=== PATIENT | female | born 1960 | race Caucasian/White ===

== ENCOUNTER 2018-10-21 01:31 | Inpatient (IN) | payer MEDICAID ==
[~2018-10-21] VITALS: Ht 152.4 cm; Wt 80.0 kg
[2018-10-21] MEDS ORDERED: ONDANSETRON HCL 4MG/2ML INJ IV STA (03:31)
[2018-10-21] MEDS ORDERED: SODIUM CHLORIDE 0.9% 1,000 ML IV ONE (03:31)
[2018-10-21] MEDS ORDERED: MORPHINE SULFATE 4 MG/ML CPJ (NOT FOR IM USE) IV STA (03:31)
[2018-10-21] MEDS ORDERED: FAMOTIDINE 20MG/2ML VIAL IV STA (03:31)
[2018-10-21 03:53] LABS: BASOPHILS % 0.5 % (0.0-2.0); EOSINOPHILS % 1.3 % (0.0-5.0); HEMATOCRIT. 27.2 % (36.0-48.0); HEMOGLOBIN. 9.5 g/dL (12.0-16.0); LYMPHOCYTES % 13.5 % (20.0-50.0); MEAN CORPUSCULAR HEMOGLOBIN 29.8 pg (28.0-32.0); MEAN PLATELET VOLUME 8.8 fl (7.4-10.4); MONOCYTES % 5.7 % (2.0-8.0); RED BLOOD CELL COUNT 3.17 mill/uL (4.2-5.4); RED CELL DISTRIBUTION WIDTH 16.3 % (11.6-14.6)
[2018-10-21 03:58] LABS: CHLORIDE 102 mEq/L (98-107)
[2018-10-21] MEDS ORDERED: MORPHINE SULFATE 4 MG/ML CPJ (NOT FOR IM USE) IV ONE (05:45)
[2018-10-21] MEDS ORDERED: CEFTRIAXONE 1 G PREMIX 50 ML IV ONE (05:45)
[2018-10-21] MEDS ORDERED: ONDANSETRON HCL 4MG/2ML INJ IV ONE (05:45)
[2018-10-21] MEDS ORDERED: IOHEXOL-300 100 ML BOTTLE ONE (06:19)
[2018-10-21] MEDS ORDERED: PIPERACILLIN/TAZOBACTAM 3.375GM/50ML PREMIX IV ONE (09:00)
[2018-10-21] MEDS ORDERED: METOCLOPRAMIDE HCL 10MG/2ML VIAL IV ONE (09:00)
[2018-10-21 12:00] VITALS: BP 152/46
[2018-10-21 12:25] VITALS: BP 152/46
[2018-10-21] MEDS: ONDANSETRON HCL 4MG/2ML INJ IV PRN ×2 (13:26→20:39)
[2018-10-21] MEDS: MORPHINE SULFATE 2 MG/ML CPJ (NOT FOR IM USE) IV PRN (13:27)
[2018-10-21 16:00] VITALS: BP 185/75
[2018-10-21 20:00] VITALS: BP 159/73
[2018-10-21] MEDS ORDERED: DEXTROSE 50% WATER 50ML SYRINGE IV PRN (23:15)
[2018-10-22] VITALS: BP 178/75
[2018-10-22] MEDS: LOSARTAN POTASSIUM 25 MG TABLET PO SCH ×2 (01:30→08:21)
[2018-10-22] MEDS: ONDANSETRON HCL 4MG/2ML INJ IV PRN ×3 (03:24→20:14)
[2018-10-22] MEDS: MORPHINE SULFATE 2 MG/ML CPJ (NOT FOR IM USE) IV PRN ×4 (03:27→23:31)
[2018-10-22 04:00] VITALS: BP 159/75
[2018-10-22] MEDS: BLOOD SUGAR DIAGNOSTIC STRIP TEST SCH ×4 (06:23→21:00)
[2018-10-22 07:49] LABS: HEMATOCRIT. 28.1 % (36.0-48.0); HEMOGLOBIN. 9.4 g/dL (12.0-16.0); MEAN CORPUSCULAR HEMOGLOBIN 29.5 pg (28.0-32.0); MEAN CORPUSCULAR VOLUME 87.9 fL (81.0-99.0); PLATELET 63 x1000/uL (130-400)
[2018-10-22] MEDS: INSULIN LISPRO 100 UNITS/ML SUBCUT SCH ×4 (07:50→20:26)
[2018-10-22 08:00] VITALS: BP 165/60
[2018-10-22 08:20] LABS: CHLORIDE 106 mEq/L (98-107)
[2018-10-22 08:25] LABS: HEPATITIS B SURFACE ANTIGEN NEGATIVE
[2018-10-22 08:55] LABS: HEPATITIS A AB IGM NEGATIVE (NEGATIVE)
[2018-10-22 12:00] VITALS: BP 120/45
[2018-10-22 13:05] LABS: PLATELET ESTIMATE DECREASED
[2018-10-22 14:03] LABS: PLATELET 41 x1000/uL (130-400)
[2018-10-22] MEDS: FAMOTIDINE 20MG/2ML VIAL IV SCH (15:31)
[2018-10-22] MEDS ORDERED: LEVO125T8 MT (15:48)
[2018-10-22] MEDS ORDERED: SITA25TA3 MT (15:48)
[2018-10-22] MEDS ORDERED: GLIP5TAB12 MT (15:48)
[2018-10-22 16:00] VITALS: BP 169/70
[2018-10-22 20:00] VITALS: BP 150/70
[2018-10-22 20:50] LABS: BASOPHILS % 0.3 % (0.0-2.0); EOSINOPHILS % 0.1 % (0.0-5.0); HEMATOCRIT. 26.7 % (36.0-48.0); HEMOGLOBIN. 9.2 g/dL (12.0-16.0); LYMPHOCYTES % 7.7 % (20.0-50.0); MEAN CORPUSCULAR HEMOGLOBIN 30.4 pg (28.0-32.0); MEAN CORPUSCULAR VOLUME 88.4 fL (81.0-99.0); MEAN PLATELET VOLUME 9.2 fl (7.4-10.4); MONOCYTES % 5.3 % (2.0-8.0); NEUTROPHILS % 86.6 % (40.0-76.0); PLATELET 71 x1000/uL (130-400); RED BLOOD CELL COUNT 3.02 mill/uL (4.2-5.4); RED CELL DISTRIBUTION WIDTH 17.3 % (11.6-14.6)
[2018-10-22] MEDS ORDERED: CALCIUM GLUCONATE 1,000 MG in DEXT 5% WATER 90 ML IV SCH (22:00)
[2018-10-22] MEDS: LEVOTHYROXINE SODIUM 75MCG TABLET PO SCH (22:11)
[2018-10-22 22:36] LABS: CLARITY URINE CLOUDY (CLEAR); COLOR URINE YELLOW (YELLOW); KETONES URINE NEGATIVE (NEGATIVE); LEUKOCYTE ESTERASE URINE TRACE (NEGATIVE); NITRITE URINE NEGATIVE (NEGATIVE); OCCULT BLOOD URINE 2+ (NEGATIVE); PROTEIN URINE 4+ (NEGATIVE); SPECIFIC GRAVITY URINE 1.025 (1.005-1.030)
[2018-10-23] VITALS (10 sets, daily range): BP systolic 133–166; BP diastolic 54–85
[2018-10-23] MEDS: ONDANSETRON HCL 4MG/2ML INJ IV PRN ×3 (03:04→17:43)
[2018-10-23] MEDS: SODIUM CHLORIDE 0.9% 1,000 ML IV SCH ×3 (05:03→22:25)
[2018-10-23] MEDS: LEVOTHYROXINE SODIUM 75MCG TABLET PO SCH (06:23)
[2018-10-23] MEDS: BLOOD SUGAR DIAGNOSTIC STRIP TEST SCH ×4 (06:39→21:12)
[2018-10-23 06:58] LABS: HEMATOCRIT. 24.3 % (36.0-48.0); HEMOGLOBIN. 8.2 g/dL (12.0-16.0); MEAN CORPUSCULAR HEMOGLOBIN 29.8 pg (28.0-32.0); MEAN CORPUSCULAR VOLUME 88.6 fL (81.0-99.0); MEAN PLATELET VOLUME 9.3 fl (7.4-10.4); PLATELET 69 x1000/uL (130-400); RED BLOOD CELL COUNT 2.75 mill/uL (4.2-5.4); RED CELL DISTRIBUTION WIDTH 17.1 % (11.6-14.6)
[2018-10-23 07:35] LABS: PHOSPHORUS 4.9 mg/dL (2.5-4.9)
[2018-10-23] MEDS: INSULIN LISPRO 100 UNITS/ML SUBCUT SCH ×4 (07:36→21:00)
[2018-10-23 07:38] LABS: T4 FREE 1.04 ng/dL (0.76-1.46)
[2018-10-23] MEDS: FAMOTIDINE 20MG/2ML VIAL IV SCH (08:48)
[2018-10-23] MEDS: HYDROMORPHONE HCL/PF 2MG/ML CPJ IV PRN (08:49)
[2018-10-23] MEDS: CLONIDINE 0.1MG TABLET PO PRN (08:51)
[2018-10-23 09:07] LABS: CREATINE KINASE 983 IU/L (26-192)
[2018-10-23 11:25] LABS: PLATELET ESTIMATE DECREASED
[2018-10-23] MEDS: ACETAMINOPHEN 325MG TABLET PO PRN (17:43)
[2018-10-24] VITALS (12 sets, daily range): BP systolic 124–160; BP diastolic 43–80
[2018-10-24] MEDS: ONDANSETRON HCL 4MG/2ML INJ IV PRN ×3 (01:33→21:55)
[2018-10-24] MEDS: HYDROMORPHONE HCL/PF 2MG/ML CPJ IV PRN (02:41)
[2018-10-24] MEDS: LEVOTHYROXINE SODIUM 75MCG TABLET PO SCH (07:22)
[2018-10-24] MEDS: BLOOD SUGAR DIAGNOSTIC STRIP TEST SCH ×4 (07:22→21:00)
[2018-10-24 07:28] LABS: HEMATOCRIT. 23.1 % (36.0-48.0); HEMOGLOBIN. 7.6 g/dL (12.0-16.0); MEAN CORPUSCULAR HEMOGLOBIN 29.4 pg (28.0-32.0); MEAN CORPUSCULAR VOLUME 89.5 fL (81.0-99.0); MEAN PLATELET VOLUME 9.2 fl (7.4-10.4); PLATELET 98 x1000/uL (130-400); RED BLOOD CELL COUNT 2.58 mill/uL (4.2-5.4); RED CELL DISTRIBUTION WIDTH 18.3 % (11.6-14.6)
[2018-10-24] MEDS: INSULIN LISPRO 100 UNITS/ML SUBCUT SCH ×4 (07:41→21:00)
[2018-10-24] MEDS: SODIUM CHLORIDE 0.9% 1,000 ML IV SCH ×2 (08:19→17:24)
[2018-10-24] MEDS: FAMOTIDINE 20MG/2ML VIAL IV SCH (08:19)
[2018-10-24 08:40] LABS: PHOSPHORUS 4.2 mg/dL (2.5-4.9)
[2018-10-24 10:02] LABS: PLATELET ESTIMATE DECREASED
[2018-10-24] MEDS: ACETAMINOPHEN 325MG TABLET PO PRN ×2 (11:21→17:30)
[2018-10-24] MEDS: CLONIDINE 0.1MG TABLET PO PRN (11:21)
[2018-10-24] MEDS ORDERED: CALCIUM GLUCONATE 1,000 MG in DEXT 5% WATER 90 ML IV NR (12:00)
[2018-10-24] MEDS: PIPERACILLIN/TAZ 3.375G PREMIX 50 ML IV SCH ×2 (13:51→21:33)
[2018-10-24] MEDS: LACTULOSE 20G/30ML UDC PO SCH (17:24)
[2018-10-25] VITALS (13 sets, daily range): BP systolic 73–186; BP diastolic 36–103
[2018-10-25] MEDS: ACETAMINOPHEN 325MG TABLET PO PRN ×2 (00:45→14:52)
[2018-10-25] MEDS: CLONIDINE 0.1MG TABLET PO PRN ×2 (02:29→13:39)
[2018-10-25] MEDS: PIPERACILLIN/TAZ 3.375G PREMIX 50 ML IV SCH ×3 (04:32→21:33)
[2018-10-25] MEDS: SODIUM CHLORIDE 0.9% 1,000 ML IV SCH ×2 (04:32→12:44)
[2018-10-25 06:38] LABS: BASOPHILS % 0.6 % (0.0-2.0); EOSINOPHILS % 2.1 % (0.0-5.0); HEMATOCRIT. 23.7 % (36.0-48.0); LYMPHOCYTES % 13.1 % (20.0-50.0); MEAN CORPUSCULAR HEMOGLOBIN 30.1 pg (28.0-32.0); MEAN PLATELET VOLUME 8.5 fl (7.4-10.4); NEUTROPHILS % 73.2 % (40.0-76.0); PLATELET 121 x1000/uL (130-400); RED BLOOD CELL COUNT 2.66 mill/uL (4.2-5.4); RED CELL DISTRIBUTION WIDTH 18.2 % (11.6-14.6)
[2018-10-25] MEDS: LEVOTHYROXINE SODIUM 150MCG TABLET PO SCH (06:39)
[2018-10-25] MEDS: BLOOD SUGAR DIAGNOSTIC STRIP TEST SCH ×4 (06:39→21:34)
[2018-10-25] MEDS: INSULIN LISPRO 100 UNITS/ML SUBCUT SCH ×4 (06:39→21:00)
[2018-10-25] MEDS: LACTULOSE 20G/30ML UDC PO SCH ×2 (08:51→17:39)
[2018-10-25] MEDS: FAMOTIDINE 20MG/2ML VIAL IV SCH (08:51)
[2018-10-25] MEDS ORDERED: CALCIUM CHLORIDE 1,000 MG in DEXT 5% WATER 90 ML IV SCH (11:00)
[2018-10-25] MEDS ORDERED: HYDROCODONE/ACETAMINOPHEN 5/325MG TABLET PO PRN (17:00)
[2018-10-26] VITALS (18 sets, daily range): BP systolic 101–193; BP diastolic 58–101
[2018-10-26] MEDS: SODIUM CHLORIDE 0.9% 1,000 ML IV SCH ×3 (04:25→21:35)
[2018-10-26] MEDS: PIPERACILLIN/TAZ 3.375G PREMIX 50 ML IV SCH ×3 (04:25→21:35)
[2018-10-26] MEDS: CLONIDINE 0.2MG TABLET PO PRN ×3 (04:26→21:49)
[2018-10-26] MEDS: HYDROMORPHONE HCL/PF 2MG/ML CPJ IV PRN ×2 (04:35→10:50)
[2018-10-26] MEDS: LEVOTHYROXINE SODIUM 150MCG TABLET PO SCH (06:15)
[2018-10-26] MEDS: BLOOD SUGAR DIAGNOSTIC STRIP TEST SCH ×4 (06:16→21:45)
[2018-10-26 06:22] LABS: BASOPHILS % 0.4 % (0.0-2.0); EOSINOPHILS % 2.8 % (0.0-5.0); HEMATOCRIT. 24.8 % (36.0-48.0); HEMOGLOBIN. 8.4 g/dL (12.0-16.0); LYMPHOCYTES % 13.4 % (20.0-50.0); MEAN CORPUSCULAR HEMOGLOBIN 30.2 pg (28.0-32.0); MEAN CORPUSCULAR VOLUME 88.6 fL (81.0-99.0); MEAN PLATELET VOLUME 7.9 fl (7.4-10.4); MONOCYTES % 11.8 % (2.0-8.0); NEUTROPHILS % 71.6 % (40.0-76.0); PLATELET 171 x1000/uL (130-400); RED BLOOD CELL COUNT 2.79 mill/uL (4.2-5.4); RED CELL DISTRIBUTION WIDTH 18.8 % (11.6-14.6)
[2018-10-26] MEDS: INSULIN LISPRO 100 UNITS/ML SUBCUT SCH ×4 (08:00→21:00)
[2018-10-26] MEDS: LACTULOSE 20G/30ML UDC PO SCH ×2 (08:45→18:43)
[2018-10-26] MEDS: FAMOTIDINE 20MG/2ML VIAL IV SCH (08:46)
[2018-10-26] MEDS: CALCIUM CARBONATE 1250MG TABLET (500MG ELEMENTAL CALCIUM) PO SCH (08:46)
[2018-10-26] MEDS ORDERED: POTASSIUM CHLORIDE 20MEQ TABLET SR PO SCH (09:00)
[2018-10-26] MEDS: ONDANSETRON HCL 4MG/2ML INJ IV PRN (09:04)
[2018-10-26 13:10] LABS: ANTI-NUCLEAR ANTIBODIES DIRECT Negative (Negative)
[2018-10-26] MEDS: CLONIDINE 0.1MG TABLET PO PRN (15:39)
[2018-10-27] VITALS (12 sets, daily range): BP systolic 128–195; BP diastolic 24–89
[2018-10-27] MEDS: ACETAMINOPHEN 325MG TABLET PO PRN ×3 (00:26→21:30)
[2018-10-27 05:19] LABS: HIV SCREEN 4G Non Reactive (Non Reactive)
[2018-10-27] MEDS: SODIUM CHLORIDE 0.9% 1,000 ML IV SCH ×3 (05:35→23:56)
[2018-10-27] MEDS: PIPERACILLIN/TAZ 3.375G PREMIX 50 ML IV SCH ×3 (05:35→21:29)
[2018-10-27] MEDS: CLONIDINE 0.2MG TABLET PO PRN ×2 (05:36→21:30)
[2018-10-27 06:36] LABS: BASOPHILS % 0.7 % (0.0-2.0); EOSINOPHILS % 3.5 % (0.0-5.0); HEMATOCRIT. 24.8 % (36.0-48.0); HEMOGLOBIN. 8.3 g/dL (12.0-16.0); LYMPHOCYTES % 16.8 % (20.0-50.0); MEAN CORPUSCULAR HEMOGLOBIN 29.6 pg (28.0-32.0); MEAN PLATELET VOLUME 7.7 fl (7.4-10.4); MONOCYTES % 11.3 % (2.0-8.0); NEUTROPHILS % 67.7 % (40.0-76.0); PLATELET 161 x1000/uL (130-400); RED BLOOD CELL COUNT 2.79 mill/uL (4.2-5.4); RED CELL DISTRIBUTION WIDTH 20.1 % (11.6-14.6)
[2018-10-27 06:50] LABS: PHOSPHORUS 3.2 mg/dL (2.5-4.9)
[2018-10-27] MEDS ORDERED: POTASSIUM CHLORIDE 20MEQ/PACKET PO SCH (07:00)
[2018-10-27] MEDS: BLOOD SUGAR DIAGNOSTIC STRIP TEST SCH ×4 (07:30→21:31)
[2018-10-27] MEDS: INSULIN LISPRO 100 UNITS/ML SUBCUT SCH ×4 (08:00→21:00)
[2018-10-27 08:19] LABS: COMPLEMENT C3 123 mg/dL (82-167)
[2018-10-27] MEDS ORDERED: MAGNESIUM 2 G PREMIX 50 ML IV SCH (10:00)
[2018-10-27] MEDS: LEVOTHYROXINE SODIUM 150MCG TABLET PO SCH (10:25)
[2018-10-27] MEDS: LACTULOSE 20G/30ML UDC PO SCH ×2 (10:25→16:59)
[2018-10-27] MEDS: CALCIUM CARBONATE 1250MG TABLET (500MG ELEMENTAL CALCIUM) PO SCH (10:25)
[2018-10-27] MEDS: FAMOTIDINE 20MG/2ML VIAL IV SCH (10:26)
[2018-10-27] MEDS: NEBIVOLOL HCL 5 MG TABLET PO SCH (14:29)
[2018-10-27] MEDS: LOSARTAN POTASSIUM 50 MG TABLET PO SCH (14:29)
[2018-10-28] VITALS (17 sets, daily range): BP systolic 144–204; BP diastolic 58–95
[2018-10-28] MEDS: ACETAMINOPHEN 325MG TABLET PO PRN (03:51)
[2018-10-28] MEDS: CLONIDINE 0.2MG TABLET PO PRN ×2 (03:52→17:08)
[2018-10-28] MEDS: PIPERACILLIN/TAZ 3.375G PREMIX 50 ML IV SCH ×2 (05:22→13:03)
[2018-10-28 06:56] LABS: BASOPHILS % 0.6 % (0.0-2.0); EOSINOPHILS % 2.9 % (0.0-5.0); HEMATOCRIT. 25.1 % (36.0-48.0); HEMOGLOBIN. 8.5 g/dL (12.0-16.0); LYMPHOCYTES % 14.4 % (20.0-50.0); MEAN CORPUSCULAR HEMOGLOBIN 29.8 pg (28.0-32.0); MEAN CORPUSCULAR VOLUME 88.4 fL (81.0-99.0); MONOCYTES % 10.4 % (2.0-8.0); NEUTROPHILS % 71.7 % (40.0-76.0); PLATELET 162 x1000/uL (130-400); RED BLOOD CELL COUNT 2.84 mill/uL (4.2-5.4)
[2018-10-28 06:59] LABS: CHLORIDE 107 mEq/L (98-107)
[2018-10-28 07:07] LABS: PHOSPHORUS 3.9 mg/dL (2.5-4.9)
[2018-10-28] MEDS: BLOOD SUGAR DIAGNOSTIC STRIP TEST SCH ×2 (07:30→12:59)
[2018-10-28] MEDS: INSULIN LISPRO 100 UNITS/ML SUBCUT SCH ×2 (08:00→12:59)
[2018-10-28] MEDS ORDERED: POTASSIUM CHLORIDE 20MEQ/PACKET PO NR (08:00)
[2018-10-28] MEDS: NEBIVOLOL HCL 5 MG TABLET PO SCH (09:14)
[2018-10-28] MEDS: LEVOTHYROXINE SODIUM 150MCG TABLET PO SCH (09:14)
[2018-10-28] MEDS: LOSARTAN POTASSIUM 50 MG TABLET PO SCH (09:14)
[2018-10-28] MEDS: CALCIUM CARBONATE 1250MG TABLET (500MG ELEMENTAL CALCIUM) PO SCH (09:14)
[2018-10-28] MEDS: LACTULOSE 20G/30ML UDC PO SCH (09:15)
[2018-10-28] MEDS: FAMOTIDINE 20MG/2ML VIAL IV SCH (09:15)
[2018-10-28] MEDS ORDERED: POTASSIUM CHLORIDE 20MEQ TABLET SR PO SCH (12:00)
[2018-10-28] MEDS ORDERED: AMLODIPINE 10MG TABLET PO SCH (12:30)
[2018-10-28] MEDS ORDERED: NEBIVOLOL HCL 5 MG TABLET PO SCH (12:30)
[2018-10-28] MEDS: SODIUM CHLORIDE 0.9% 1,000 ML IV SCH (13:30)
[2018-10-28] MEDS ORDERED: LOSARTAN POTASSIUM 50 MG TABLET PO SCH (21:00)
[2018-10-29] MEDS ORDERED: NEBIVOLOL HCL 5 MG TABLET PO SCH (09:00)
[2018-11-05] MEDS ORDERED: CALC0.253 PO (11:46)
[2018-11-05] MEDS ORDERED: CALC-25 PO (11:46)
== END 2018-10-28 18:30 | disposition home or self-care (01) | DRG 48 ==
LOC: ER 01:31 → 6EST 08:49 → EDBEDREQTM 08:52 → EDBEDREQ 08:52 → EDBEDREQSVC 08:52 → ENRESERV 11:44 → 6EST 12:46 → 5EST 10-23 10:52
PROVIDERS: ADMIT Internal Medicine; ATTEND Internal Medicine
DX: E11.43 Type 2 diabetes mellitus with diabetic autonomic (poly)neuropathy (principal); N17.9 Acute kidney failure, unspecified; D69.6 Thrombocytopenia, unspecified; E44.1 Mild protein-calorie malnutrition; E66.01 Morbid (severe) obesity due to excess calories; E83.51 Hypocalcemia; K31.84 Gastroparesis; I11.9 Hypertensive heart disease without heart failure; E87.1 Hypo-osmolality and hyponatremia; K52.9 Noninfective gastroenteritis and colitis, unspecified; E86.0 Dehydration; D64.9 Anemia, unspecified; E03.9 Hypothyroidism, unspecified; N39.0 Urinary tract infection, site not specified; R80.9 Proteinuria, unspecified; K76.0 Fatty (change of) liver, not elsewhere classified; K82.8 Other specified diseases of gallbladder; K81.9 Cholecystitis, unspecified; Z79.899 Other long term (current) drug therapy; Z68.34 Body mass index [BMI] 34.0-34.9, adult
CPT/HCPCS: 36415; 71045; 74018; 74177; 74181; 76705; 80048; 80076; 82330; 82550; 82652; 82962; 83605; 83735; 83970; 84100; 84439; 84443; 84480; 86038; 86160; 86705; 86709; 86803; 87340; 87389; 93005; 96365; 96375; 99285; C1893; J0610; J0696; J1170; J1815; J2270; J2405; J2543; J2765; J3475; J3490; J7030; J7060; Q9967

== ENCOUNTER 2018-10-30 04:12 | Emergency (ER) | payer MEDICAID ==
[~2018-10-30] VITALS: Ht 137.2 cm; Wt 70.0 kg
[~2018-10-30 04:12] MED LIST: GLIP5TAB12 MT; LEVO125T8 MT; SITA25TA3 MT
[2018-10-30] MEDS ORDERED: FAMOTIDINE 20MG/2ML VIAL IV STA (06:50)
[2018-10-30] MEDS ORDERED: SODIUM CHLORIDE 0.9% 1,000 ML IV ONE (06:50)
[2018-10-30] MEDS ORDERED: ONDANSETRON HCL 4MG/2ML INJ IV STA (06:50)
[2018-10-30] MEDS ORDERED: KETOROLAC 30MG/ML VIAL IV STA (06:50)
[2018-10-30 08:06] LABS: BASOPHILS % 0.8 % (0.0-2.0); EOSINOPHILS % 1.7 % (0.0-5.0); HEMATOCRIT. 30.6 % (36.0-48.0); HEMOGLOBIN. 10.1 g/dL (12.0-16.0); LYMPHOCYTES % 17.8 % (20.0-50.0); MEAN CORPUSCULAR HEMOGLOBIN 29.3 pg (28.0-32.0); MEAN CORPUSCULAR VOLUME 89.1 fL (81.0-99.0); MEAN PLATELET VOLUME 7.5 fl (7.4-10.4); MONOCYTES % 7.4 % (2.0-8.0); NEUTROPHILS % 72.3 % (40.0-76.0); PLATELET 210 x1000/uL (130-400); RED BLOOD CELL COUNT 3.44 mill/uL (4.2-5.4)
[2018-10-30 08:13] LABS: CHLORIDE 101 mEq/L (98-107)
[2018-10-30 08:28] LABS: CLARITY URINE CLEAR (CLEAR); COLOR URINE YELLOW (YELLOW); KETONES URINE NEGATIVE (NEGATIVE); LEUKOCYTE ESTERASE URINE TRACE (NEGATIVE); NITRITE URINE NEGATIVE (NEGATIVE); OCCULT BLOOD URINE TRACE (NEGATIVE); PH URINE 6.5 (4.5-8.0); PROTEIN URINE 4+ (NEGATIVE); SPECIFIC GRAVITY URINE 1.011 (1.005-1.030)
[2018-10-30 09:08] LABS: PLATELET ESTIMATE NORMAL
[2018-10-30 14:50] VITALS: BP 141/75
== END 2018-10-30 15:45 | disposition home or self-care (01) ==
LOC: ER 04:12
DX: K81.9 Cholecystitis, unspecified (principal); R11.2 Nausea with vomiting, unspecified; E11.9 Type 2 diabetes mellitus without complications; E07.9 Disorder of thyroid, unspecified; Z98.890 Other specified postprocedural states; Z79.899 Other long term (current) drug therapy
CPT/HCPCS: 36415; 76705; 80053; 81003; 83690; 85025; 96361; 96374; 96375; 99284; J1885; J2405; J3490; Z7610

== ENCOUNTER 2025-04-06 15:04 | Emergency (ER) | payer MEDICARE, MEDICAID ==
[~2025-04-06] VITALS: Ht 160 cm; Wt 73.0 kg
[~2025-04-06 15:04] MED LIST changes: +CALC-26 PO; +CALC0.253 PO; -GLIP5TAB12 MT; +GLIP5TAB22 MT
[2025-04-06 15:08] VITALS: O2SAT 100
[2025-04-06 15:11] VITALS: BP 152/62; PULSE 81; RESP 18; TEMP 36.8; O2SAT 100
[2025-04-06 21:22] LABS: BASOPHILS % 0.6 % (0.0-2.0); EOSINOPHILS % 2.4 % (0.0-5.0); HEMATOCRIT. 33.7 % (36.0-48.0); HEMOGLOBIN. 10.5 g/dL (12.0-16.0); LYMPHOCYTES % 32.4 % (20.0-50.0); MEAN PLATELET VOLUME 8.5 fl (7.4-10.4); MONOCYTES % 6.8 % (2.0-8.0); NEUTROPHILS % 57.8 % (40.0-76.0); PLATELET 273 x1000/uL (130-400); RED BLOOD CELL COUNT 4.27 mill/uL (4.2-5.4); RED CELL DISTRIBUTION WIDTH 16.4 % (11.6-14.6)
[2025-04-06 21:40] LABS: CREATININE 0.8 mg/dL (0.6-1.0); UREA NITROGEN BLOOD 12 mg/dL (9-23)
== END 2025-04-06 23:06 | disposition home or self-care (01) ==
LOC: ER 15:04
DX: R22.1 Localized swelling, mass and lump, neck (principal); E11.9 Type 2 diabetes mellitus without complications; Z79.899 Other long term (current) drug therapy
CPT/HCPCS: 36415; 76536; 80048; 85025; 99284